=== PATIENT | male | born 1940 | race Caucasian/White ===

== ENCOUNTER 2023-01-27 16:31 | Inpatient (IN) | payer MEDICARE, OTHER ==
[~2023-01-27 16:31] MED LIST: Sodium Chloride 0.9% 500 ML IV STA
[2023-01-27 16:54] LABS: CHLORIDE,CL 96 mEq/L (98-106); SODIUM,NA 136 mEq/L (136-145)
[2023-01-27 16:58] LABS: ESTIMATED GFR 50 mL/min (>=60)
[2023-01-27 19:24] LABS: AMPHETAMINES,URINE NEGATIVE (NEGATIVE); BARBITURATES,URINE NEGATIVE (NEGATIVE); BENZODIAZEPINE,URINE NEGATIVE (NEGATIVE); MDMA (ECSTASY), URINE NEGATIVE (NEGATIVE); METHADONE,URINE NEGATIVE (NEGATIVE); METHAMPHETAMINES,URINE NEGATIVE (NEGATIVE); OPIATES,URINE NEGATIVE (NEGATIVE); OXYCODONE,URINE NEGATIVE (NEGATIVE); PHENCYCLIDINE,URINE NEGATIVE (NEGATIVE); TCA,URINE NEGATIVE (NEGATIVE)
[2023-01-27] MEDS ORDERED: Docusate Sodium 100 MG Cap PO PRN (20:08)
[2023-01-27] MEDS ORDERED: Polyethylene Glycol 3350 Powder 17 GM Packet PO PRN (20:08)
[2023-01-27] MEDS ORDERED: Potassium Chloride 10 MEQ Tab.ER PO STA (20:08)
[2023-01-27] MEDS ORDERED: Ondansetron 4 MG/2 ML SDV IV PRN (20:08)
[2023-01-27] MEDS ORDERED: Sodium Chloride 0.9% 1,000 ML IV STA (20:08)
[2023-01-27] MEDS ORDERED: Temazepam 15 MG Cap PO PRN (20:08)
[2023-01-27] MEDS ORDERED: Ondansetron 4 MG Tab.DIS PO PRN (20:08)
[2023-01-27] MEDS ORDERED: Acetaminophen 325 MG Tab PO PRN (20:08)
[2023-01-27] MEDS: Metoprolol Tartrate 50 MG Tab PO SCH (21:14)
[2023-01-27] MEDS: levETIRAcetam 500 MG Tab PO SCH (21:15)
[2023-01-28] MEDS: Lisinopril 20 MG Tab PO SCH (08:29)
[2023-01-28] MEDS: Potassium Chloride 10 MEQ Tab.ER PO SCH ×2 (08:30→16:43)
[2023-01-28] MEDS: Metoprolol Tartrate 50 MG Tab PO SCH (08:30)
[2023-01-28] MEDS: amLODIPine 2.5 MG Tab PO SCH (08:31)
[2023-01-28] MEDS: levETIRAcetam 500 MG Tab PO SCH ×2 (08:32→19:22)
[2023-01-28] MEDS: Enoxaparin 40 MG/0.4 ML Syringe SUBCUT SCH (14:22)
[2023-01-28] MEDS: Amiodarone 200 MG Tab PO SCH (16:43)
[2023-01-28] MEDS: Metoprolol Tartrate 25 MG Tab PO SCH (19:22)
[2023-01-29] MEDS: Metoprolol Tartrate 25 MG Tab PO SCH ×2 (08:28→19:50)
[2023-01-29] MEDS: levETIRAcetam 500 MG Tab PO SCH ×2 (08:29→19:50)
[2023-01-29] MEDS: Amiodarone 200 MG Tab PO SCH (08:29)
[2023-01-29] MEDS: Lisinopril 20 MG Tab PO SCH (08:29)
[2023-01-29] MEDS: Potassium Chloride 10 MEQ Tab.ER PO SCH ×2 (08:29→18:15)
[2023-01-29] MEDS: amLODIPine 2.5 MG Tab PO SCH (08:30)
[2023-01-29] MEDS: Enoxaparin 40 MG/0.4 ML Syringe SUBCUT SCH (11:30)
[2023-01-30] MEDS: levETIRAcetam 500 MG Tab PO SCH ×2 (07:34→19:17)
[2023-01-30] MEDS: Metoprolol Tartrate 25 MG Tab PO SCH ×2 (07:34→19:17)
[2023-01-30] MEDS: Potassium Chloride 10 MEQ Tab.ER PO SCH ×2 (07:35→17:41)
[2023-01-30] MEDS: Lisinopril 20 MG Tab PO SCH (07:36)
[2023-01-30] MEDS: Amiodarone 200 MG Tab PO SCH (07:36)
[2023-01-30] MEDS: amLODIPine 2.5 MG Tab PO SCH (07:36)
[2023-01-30] MEDS: Enoxaparin 40 MG/0.4 ML Syringe SUBCUT SCH (11:36)
[2023-01-31] MEDS: Amiodarone 200 MG Tab PO SCH (07:17)
[2023-01-31] MEDS: Lisinopril 20 MG Tab PO SCH (07:17)
[2023-01-31] MEDS: Potassium Chloride 10 MEQ Tab.ER PO SCH ×2 (07:17→18:32)
[2023-01-31] MEDS: Metoprolol Tartrate 25 MG Tab PO SCH ×2 (07:18→19:20)
[2023-01-31] MEDS: amLODIPine 2.5 MG Tab PO SCH (07:18)
[2023-01-31] MEDS: levETIRAcetam 500 MG Tab PO SCH ×2 (07:18→19:20)
[2023-01-31] MEDS: Enoxaparin 40 MG/0.4 ML Syringe SUBCUT SCH (11:44)
[2023-02-01] MEDS: Amiodarone 200 MG Tab PO SCH (08:15)
[2023-02-01] MEDS: Lisinopril 20 MG Tab PO SCH (08:15)
[2023-02-01] MEDS: Potassium Chloride 10 MEQ Tab.ER PO SCH (08:15)
[2023-02-01] MEDS: Metoprolol Tartrate 25 MG Tab PO SCH (08:15)
[2023-02-01] MEDS: levETIRAcetam 500 MG Tab PO SCH (08:15)
[2023-02-01 08:16] VITALS: BP 148/67; PULSE 58
[2023-02-01] MEDS: amLODIPine 2.5 MG Tab PO SCH (08:16)
== END 2023-02-01 10:20 | DRG 641 ==
LOC: CC.ED 16:31 → UNDOADMIN 19:40 → CC.MS 19:40
PROVIDERS: ADMIT Nurse Practitioner; ATTEND Nurse Practitioner
DX: E87.6 Hypokalemia (principal); R64 Cachexia; I16.0 Hypertensive urgency; E86.0 Dehydration; Z20.822 Contact with and (suspected) exposure to COVID-19; E78.00 Pure hypercholesterolemia, unspecified; I10 Essential (primary) hypertension; R31.9 Hematuria, unspecified; R56.9 Unspecified convulsions; Z98.49 Cataract extraction status, unspecified eye; Z98.890 Other specified postprocedural states; Z79.899 Other long term (current) drug therapy; Z68.20 Body mass index [BMI] 20.0-20.9, adult
CPT/HCPCS: 36415; 70450; 71045; 80048; 80053; 80177; 80305-QW; 80307; 81001; 82550; 83735; 84484; 85025; 93005; 93010; 93306; 97110-GP; 97161-GP; 99223; 99232; 99233; 99238; A9270-GY; J1650; J7030; J7040; U0002

== ENCOUNTER 2023-04-19 18:26 | Emergency (ER) | payer MEDICARE, OTHER ==
[2023-04-19 18:31] VITALS: BP 156/61; PULSE 77
[2023-04-19 18:58] LABS: BASOPHILS ABSOLUTE AUTO 0.02 10^3/uL (0.00-0.50); BASOPHILS PERCENT AUTO 0.4 % (0-1); EOSINOPHILS ABSOLUTE AUTO 0.11 10^3/uL (0.00-1.50); HEMATOCRIT 34.7 % (42.0-52.0); HEMOGLOBIN 10.9 g/dL (14.0-18.0); MEAN CORPUSCULAR HEMOGLOBIN 34.2 pg (27.0-32.0); MEAN CORPUSCULAR HGB CONC 31.4 g/dL (32.0-36.0); MEAN CORPUSCULAR VOLUME 108.8 fL (83.0-97.0); MONOCYTES ABSOLUTE AUTO 0.88 10^3/uL (0.00-1.50); NEUTROPHILS ABSOLUTE AUTO 3.39 x10^3/uL (1.80-8.00); NEUTROPHILS PERCENT AUTO 61.6 % (41-71); PLATELET COUNT,PLT 283 10^3/uL (150-400); RED BLOOD CELL COUNT 3.19 x10^6/uL (4.50-6.00); WHITE BLOOD CELL COUNT,WBC 5.5 10^3/uL (4.0-11.0)
[2023-04-19 19:07] LABS: ALBUMIN 3.6 g/dL (3.4-5.0); BILIRUBIN TOTAL 0.3 mg/dL (0.0-1.0); CREATININE 1.7 mg/dL (0.7-1.3); EST CRCL DRUG DOSING (CG) 31.9 mL/min; MAGNESIUM 1.9 mg/dL (1.8-2.4); POTASSIUM,K 5.2 mEq/L (3.5-5.0); PROTEIN TOTAL,TP 7.6 g/dL (6.4-8.2)
[2023-04-19 19:45] LABS: APPEARANCE,URINE CLEAR (CLEAR); BILIRUBIN,URINE NEGATIVE (NEGATIVE); COLOR,URINE YELLOW (YELLOW); GLUCOSE,URINE NEGATIVE (NEGATIVE); KETONES,URINE NEGATIVE (NEGATIVE); LEUKOCYTE ESTERASE,URINE TRACE (NEGATIVE); NITRITE,URINE NEGATIVE (NEGATIVE); OCCULT BLOOD,URINE NEGATIVE (NEGATIVE); PH,URINE 5.5 (4.5-8.0); PROTEIN,URINE TRACE mg/dL (NEGATIVE); UROBILINOGEN,URINE 0.2 EU/dL (0.2-1.0)
[2023-04-19 19:46] LABS: BACTERIA,URINE OCCASIONAL /HPF (NOT SEEN); RBC,URINE 0-5 /HPF (0-5); SQUAMOUS EPITHELIAL CELLS,UR NOT SEEN /HPF (NOT SEEN)
[2023-04-19 19:48] LABS: AMPHETAMINES,URINE NEGATIVE (NEGATIVE); BARBITURATES,URINE NEGATIVE (NEGATIVE); BENZODIAZEPINE,URINE NEGATIVE (NEGATIVE); MDMA (ECSTASY), URINE NEGATIVE (NEGATIVE); METHADONE,URINE NEGATIVE (NEGATIVE); METHAMPHETAMINES,URINE NEGATIVE (NEGATIVE); OPIATES,URINE NEGATIVE (NEGATIVE); OXYCODONE,URINE NEGATIVE (NEGATIVE); PHENCYCLIDINE,URINE NEGATIVE (NEGATIVE); TCA,URINE NEGATIVE (NEGATIVE)
[2023-04-19] MEDS: diphenhydrAMINE 50 MG/ML SDV IM ONE (20:57)
[2023-04-19] MEDS: Haloperidol Lactate 5 MG/ML SDV IM ONE (20:57)
== END 2023-04-19 20:20 ==
LOC: CC.ED 18:26
DX: R45.851 Suicidal ideations (principal); R45.850 Homicidal ideations; R46.89 Other symptoms and signs involving appearance and behavior; I10 Essential (primary) hypertension; Z79.899 Other long term (current) drug therapy; Z87.891 Personal history of nicotine dependence
CPT/HCPCS: 36415; 80053; 80305-QW; 81001; 83735; 85025; 87086; 99284; 99285

== ENCOUNTER 2024-01-14 14:30 | Inpatient (IN) | payer MEDICARE, OTHER ==
[2024-01-14] MEDS ORDERED: Sodium Chloride 0.9% 10 ML Syringe FLUSH PRN (14:35)
[2024-01-14 15:02] LABS: BASOPHILS ABSOLUTE AUTO 0.01 10^3/uL (0.00-0.50); BASOPHILS PERCENT AUTO 0.1 % (0-1); EOSINOPHILS ABSOLUTE AUTO 0.13 10^3/uL (0.00-1.50); EOSINOPHILS PERCENT AUTO 1.1 % (0-6); HEMATOCRIT 22.9 % (42.0-52.0); IMMATURE GRAN ABSOLUTE AUTO 0.06 10^3/uL (0.00-0.49); IMMATURE GRAN PERCENT AUTO 0.5 % (0.0-4.9); LYMPHOCYTES PERCENT AUTO 6.7 % (24-44); MEAN CORPUSCULAR HEMOGLOBIN 32.4 pg (27.0-32.0); MEAN CORPUSCULAR VOLUME 104.6 fL (83.0-97.0); MONOCYTES ABSOLUTE AUTO 0.73 10^3/uL (0.00-1.50); MONOCYTES PERCENT AUTO 6.1 % (0-10); NEUTROPHILS ABSOLUTE AUTO 10.25 x10^3/uL (1.80-8.00); NEUTROPHILS PERCENT AUTO 85.5 % (41-71); PLATELET COUNT,PLT 378 10^3/uL (150-400); RED BLOOD CELL COUNT 2.19 x10^6/uL (4.50-6.00)
[2024-01-14 15:06] LABS: HEMOGLOBIN 7.1 g/dL (14.0-18.0)
[2024-01-14 15:20] LABS: ALBUMIN 1.6 g/dL (3.4-5.0); BILIRUBIN TOTAL 0.5 mg/dL (0.0-1.0); C-REACTIVE PROTEIN 18.68 mg/dL (<=0.50); CALCIUM 8.4 mg/dL (8.4-10.1); CREATININE 1.7 mg/dL (0.7-1.3); EST CRCL DRUG DOSING (CG) 31.13 mL/min; MAGNESIUM 2.3 mg/dL (1.8-2.4); POTASSIUM,K 3.6 mEq/L (3.5-5.0); PROTEIN TOTAL,TP 6.8 g/dL (6.4-8.2)
[2024-01-14 15:25] LABS: LACTIC ACID 2.9 mmol/L (0.4-2.0)
[2024-01-14 15:36] LABS: CORONAVIRUS COVID-19 NAA NEGATIVE (NEGATIVE); INFLUENZA A NAA NEGATIVE (NEGATIVE); INFLUENZA B NAA NEGATIVE (NEGATIVE); RESPIRATORY SYNCYTIAL VIR NAA NEGATIVE (NEGATIVE)
[2024-01-14] MEDS: Ampicillin/Sulbactam 3 GM Vial IVPUSH ONE (16:13)
[2024-01-14] MEDS: Sodium Chloride 0.9% 1,000 ML IV SCH (16:20)
[2024-01-14] MEDS ORDERED: Bisacodyl 5 MG Tab PO PRN (16:52)
[2024-01-14] MEDS: Mirtazapine 15 MG Tab PO SCH (19:21)
[2024-01-14] MEDS: Metoprolol Tartrate 25 MG Tab PO SCH (19:21)
[2024-01-14] MEDS: Albuterol/Ipratropium 3.0-0.5 MG/3 ML Neb Soln NEB SCH (19:21)
[2024-01-14] MEDS: levETIRAcetam 500 MG Tab PO SCH (19:22)
[2024-01-14] MEDS: amLODIPine 2.5 MG Tab PO SCH (19:23)
[2024-01-14] MEDS: risperiDONE 0.25 MG Tab PO SCH (19:23)
[2024-01-14] MEDS: Hypromellose 0.3% Ophth Soln 15 ML Bottle EYEBOTH SCH (19:24)
[2024-01-14] MEDS: Polyethylene Glycol 3350 Powder 17 GM Packet PO SCH (19:24)
[2024-01-14] MEDS: Ampicillin/Sulbactam 3 GM Vial IVPUSH SCH (22:06)
[2024-01-14] MEDS: Acetaminophen 325 MG Tab PO PRN (22:06)
[2024-01-15 07:14] LABS: APPEARANCE,URINE CLEAR (CLEAR); BILIRUBIN,URINE NEGATIVE (NEGATIVE); COLOR,URINE YELLOW (YELLOW); GLUCOSE,URINE NEGATIVE (NEGATIVE); KETONES,URINE NEGATIVE (NEGATIVE); LEUKOCYTE ESTERASE,URINE NEGATIVE (NEGATIVE); NITRITE,URINE NEGATIVE (NEGATIVE); OCCULT BLOOD,URINE NEGATIVE (NEGATIVE); PROTEIN,URINE 30 mg/dL (NEGATIVE); UROBILINOGEN,URINE 0.2 EU/dL (0.2-1.0)
[2024-01-15 07:27] LABS: BACTERIA,URINE NOT SEEN /HPF (NOT SEEN); EPITHELIAL CELLS,URINE NOT SEEN /HPF (NOT SEEN); MUCUS,URINE OCCASIONAL /HPF (NOT SEEN); RBC,URINE NOT SEEN /HPF (0-5); WBC,URINE NOT SEEN /HPF (0-5)
[2024-01-15 07:29] LABS: BASOPHILS ABSOLUTE AUTO 0.03 10^3/uL (0.00-0.50); BASOPHILS PERCENT AUTO 0.2 % (0-1); EOSINOPHILS ABSOLUTE AUTO 0.32 10^3/uL (0.00-1.50); EOSINOPHILS PERCENT AUTO 2.3 % (0-6); HEMATOCRIT 24.8 % (42.0-52.0); HEMOGLOBIN 7.5 g/dL (14.0-18.0); IMMATURE GRAN ABSOLUTE AUTO 0.09 10^3/uL (0.00-0.49); IMMATURE GRAN PERCENT AUTO 0.7 % (0.0-4.9); LYMPHOCYTES ABSOLUTE AUTO 2.69 10^3/uL (0.60-5.00); LYMPHOCYTES PERCENT AUTO 19.6 % (24-44); MEAN CORPUSCULAR HEMOGLOBIN 31.5 pg (27.0-32.0); MEAN CORPUSCULAR HGB CONC 30.2 g/dL (32.0-36.0); MEAN CORPUSCULAR VOLUME 104.2 fL (83.0-97.0); MONOCYTES ABSOLUTE AUTO 1.42 10^3/uL (0.00-1.50); MONOCYTES PERCENT AUTO 10.3 % (0-10); NEUTROPHILS ABSOLUTE AUTO 9.19 x10^3/uL (1.80-8.00); NEUTROPHILS PERCENT AUTO 66.9 % (41-71); PLATELET COUNT,PLT 471 10^3/uL (150-400); RED BLOOD CELL COUNT 2.38 x10^6/uL (4.50-6.00); WHITE BLOOD CELL COUNT,WBC 13.7 10^3/uL (4.0-11.0)
[2024-01-15 07:34] LABS: ALBUMIN 1.6 g/dL (3.4-5.0); BILIRUBIN TOTAL 0.4 mg/dL (0.0-1.0); C-REACTIVE PROTEIN 19.4 mg/dL (<=0.50); CALCIUM 8.5 mg/dL (8.4-10.1); CREATININE 1.5 mg/dL (0.7-1.3); EST CRCL DRUG DOSING (CG) 35.37 mL/min; POTASSIUM,K 3.1 mEq/L (3.5-5.0); PROTEIN TOTAL,TP 6.9 g/dL (6.4-8.2)
[2024-01-15] MEDS: Tiotropium Inhaler 18 MCG Inhalation Powder Cap Kit of 5 INH SCH (07:37)
[2024-01-15] MEDS: Thiamine 100 MG Tab PO SCH (07:38)
[2024-01-15] MEDS: Ascorbic Acid 500 MG Tab PO SCH (07:39)
[2024-01-15] MEDS: Ferrous Sulfate 324 MG Tab.EC PO SCH (07:39)
[2024-01-15] MEDS: Amiodarone 200 MG Tab PO SCH (07:39)
[2024-01-15] MEDS: Vitamin B Complex Cap PO SCH (07:40)
[2024-01-15] MEDS: Magnesium Oxide 400 MG Tab PO SCH (07:40)
[2024-01-15] MEDS: Loratadine 10 MG Tab PO SCH (07:40)
[2024-01-15] MEDS: NS + KCl 20mEq/L 1,000 ML IV SCH (09:24)
[2024-01-15] MEDS: Potassium Chloride Riders 20 MEQ in Premix Bag 1 BAG IV ONE (09:24)
[2024-01-15] MEDS: Furosemide 20 MG/2 ML VIAL IV ONE (09:59)
[2024-01-16 08:50] LABS: BASOPHILS ABSOLUTE AUTO 0.03 10^3/uL (0.00-0.50); BASOPHILS PERCENT AUTO 0.3 % (0-1); EOSINOPHILS ABSOLUTE AUTO 0.14 10^3/uL (0.00-1.50); EOSINOPHILS PERCENT AUTO 1.2 % (0-6); IMMATURE GRAN ABSOLUTE AUTO 0.07 10^3/uL (0.00-0.49); IMMATURE GRAN PERCENT AUTO 0.6 % (0.0-4.9); LYMPHOCYTES PERCENT AUTO 8.8 % (24-44); MEAN CORPUSCULAR HEMOGLOBIN 31.9 pg (27.0-32.0); MEAN CORPUSCULAR HGB CONC 30.5 g/dL (32.0-36.0); MEAN CORPUSCULAR VOLUME 104.8 fL (83.0-97.0); MONOCYTES ABSOLUTE AUTO 0.99 10^3/uL (0.00-1.50); MONOCYTES PERCENT AUTO 8.7 % (0-10); NEUTROPHILS ABSOLUTE AUTO 9.19 x10^3/uL (1.80-8.00); NEUTROPHILS PERCENT AUTO 80.4 % (41-71); PLATELET COUNT,PLT 347 10^3/uL (150-400); RED BLOOD CELL COUNT 1.88 x10^6/uL (4.50-6.00); WHITE BLOOD CELL COUNT,WBC 11.4 10^3/uL (4.0-11.0)
[2024-01-16 08:54] LABS: HEMATOCRIT 19.7 % (42.0-52.0)
[2024-01-16 09:02] LABS: ALBUMIN 1.3 g/dL (3.4-5.0); BILIRUBIN TOTAL 0.3 mg/dL (0.0-1.0); CREATININE 1.6 mg/dL (0.7-1.3); EST CRCL DRUG DOSING (CG) 33.16 mL/min; POTASSIUM,K 3.2 mEq/L (3.5-5.0)
[2024-01-16] MEDS: methylPREDNISolone Sodium Succinate 125 MG/2 ML SDV IVPUSH SCH (12:22)
[2024-01-16] MEDS: Potassium Bicarbonate/Cit Ac 10 MEQ Effervescent Tab PO SCH (12:32)
[2024-01-16] MEDS ORDERED: Potassium Chloride Riders 20 MEQ in Premix Bag 1 BAG IV ONE (12:42)
[2024-01-16] MEDS: Potassium Chloride Riders 20 MEQ in Premix Bag 1 BAG IV SCH (12:54)
[2024-01-16] MEDS: Furosemide 40 MG/4 ML VIAL IV ONE (15:02)
[2024-01-16] MEDS: Furosemide 40 MG/4 ML VIAL ONE (15:03)
[2024-01-16] MEDS: Potassium Chloride Riders 20 MEQ in Premix Bag 1 BAG IV ONE (20:15)
[2024-01-16] MEDS: Potassium Chloride Riders 50 ML ONE (20:17)
[2024-01-17] MEDS: Potassium Bicarbonate/Cit Ac 10 MEQ Effervescent Tab PO ONE (04:29)
[2024-01-17 07:31] LABS: BASOPHILS ABSOLUTE AUTO 0.01 10^3/uL (0.00-0.50); BASOPHILS PERCENT AUTO 0.1 % (0-1); IMMATURE GRAN ABSOLUTE AUTO 0.06 10^3/uL (0.00-0.49); IMMATURE GRAN PERCENT AUTO 0.5 % (0.0-4.9); LYMPHOCYTES ABSOLUTE AUTO 0.56 10^3/uL (0.60-5.00); LYMPHOCYTES PERCENT AUTO 4.9 % (24-44); MEAN CORPUSCULAR HGB CONC 32.1 g/dL (32.0-36.0); MEAN CORPUSCULAR VOLUME 96.6 fL (83.0-97.0); MONOCYTES ABSOLUTE AUTO 0.27 10^3/uL (0.00-1.50); MONOCYTES PERCENT AUTO 2.4 % (0-10); NEUTROPHILS ABSOLUTE AUTO 10.51 x10^3/uL (1.80-8.00); NEUTROPHILS PERCENT AUTO 92.1 % (41-71); PLATELET COUNT,PLT 372 10^3/uL (150-400); WHITE BLOOD CELL COUNT,WBC 11.4 10^3/uL (4.0-11.0)
[2024-01-17 08:07] LABS: ALBUMIN 1.5 g/dL (3.4-5.0); BILIRUBIN TOTAL 0.8 mg/dL (0.0-1.0); C-REACTIVE PROTEIN 19.2 mg/dL (<=0.50); CALCIUM 8.5 mg/dL (8.4-10.1); CREATININE 1.6 mg/dL (0.7-1.3); EST CRCL DRUG DOSING (CG) 33.16 mL/min; POTASSIUM,K 3.7 mEq/L (3.5-5.0); PROTEIN TOTAL,TP 6.9 g/dL (6.4-8.2)
[2024-01-17 09:42] LABS: FOLIC ACID 25.5 NG/ML (>8.6)
[2024-01-17] MEDS: Furosemide 40 MG/4 ML VIAL IVPUSH ONE (10:29)
[2024-01-17] MEDS: Levofloxacin/Dextrose 5%-Water 750 MG in Premix Bag 1 BAG IV SCH (12:32)
[2024-01-17] MEDS: Furosemide 40 MG/4 ML VIAL IVPUSH SCH (16:43)
[2024-01-17] MEDS ORDERED: Polyethylene Glycol 3350 Powder 17 GM Packet PO PRN (19:50)
[2024-01-18 07:32] VITALS: BP 139/51; PULSE 80
[2024-01-18 07:37] LABS: BASOPHILS ABSOLUTE AUTO 0.01 10^3/uL (0.00-0.50); BASOPHILS PERCENT AUTO 0.1 % (0-1); HEMATOCRIT 26.1 % (42.0-52.0); HEMOGLOBIN 8.3 g/dL (14.0-18.0); IMMATURE GRAN ABSOLUTE AUTO 0.05 10^3/uL (0.00-0.49); IMMATURE GRAN PERCENT AUTO 0.4 % (0.0-4.9); LYMPHOCYTES ABSOLUTE AUTO 0.67 10^3/uL (0.60-5.00); LYMPHOCYTES PERCENT AUTO 5.1 % (24-44); MEAN CORPUSCULAR HGB CONC 31.8 g/dL (32.0-36.0); MEAN CORPUSCULAR VOLUME 97.4 fL (83.0-97.0); MONOCYTES ABSOLUTE AUTO 0.49 10^3/uL (0.00-1.50); MONOCYTES PERCENT AUTO 3.7 % (0-10); NEUTROPHILS ABSOLUTE AUTO 11.98 x10^3/uL (1.80-8.00); NEUTROPHILS PERCENT AUTO 90.7 % (41-71); PLATELET COUNT,PLT 346 10^3/uL (150-400); RED BLOOD CELL COUNT 2.68 x10^6/uL (4.50-6.00); WHITE BLOOD CELL COUNT,WBC 13.2 10^3/uL (4.0-11.0)
[2024-01-18 07:50] LABS: CALCIUM 8.2 mg/dL (8.4-10.1); CREATININE 1.8 mg/dL (0.7-1.3); EST CRCL DRUG DOSING (CG) 29.48 mL/min; MAGNESIUM 2.2 mg/dL (1.8-2.4)
[2024-01-18] MEDS ORDERED: Furosemide 40 MG/4 ML VIAL IVPUSH SCH (08:00)
[2024-01-18] MEDS: Potassium Chloride 20 MEQ Tab.ER PO ONE (10:56)
== END 2024-01-18 11:00 | disposition home or self-care (01) | DRG 193 ==
LOC: CC.ED 14:30 → CC.MS 15:30 → UNDOADMIN 15:30 → CC.MS 15:44
PROVIDERS: ADMIT Nurse Practitioner; ATTEND Nurse Practitioner
PROC: 30233N1 Transfusion of Nonautologous Red Blood Cells into Peripheral Vein, Percutaneous Approach (ICD-10-PCS; principal; 2024-01-16)
DX: J18.9 Pneumonia, unspecified organism (principal); J96.91 Respiratory failure, unspecified with hypoxia; J90 Pleural effusion, not elsewhere classified; Z66 Do not resuscitate; Z51.5 Encounter for palliative care; E87.6 Hypokalemia; I10 Essential (primary) hypertension; I48.91 Unspecified atrial fibrillation; E78.00 Pure hypercholesterolemia, unspecified; G30.9 Alzheimer's disease, unspecified; F02.80 Dementia in other diseases classified elsewhere, unspecified severity, without behavioral disturbance, psychotic disturbance, mood disturbance, and anxiety; D53.9 Nutritional anemia, unspecified; Z99.89 Dependence on other enabling machines and devices; Z88.5 Allergy status to narcotic agent; Z79.899 Other long term (current) drug therapy; Z98.49 Cataract extraction status, unspecified eye; Z90.49 Acquired absence of other specified parts of digestive tract
CPT/HCPCS: 0241U; 36415; 36430; 71045; 71046; 71250; 80048; 80053; 81001; 82607; 82746; 83605; 83735; 83880; 84484; 85025; 86140; 86850; 86900; 86901; 86920; 86922; 87040; 87493; 93005; 93010; 94640; 99223; 99232; 99233; 99239; 99285; A9270-GY; J0295; J1940; J1956; J2930; J3480; J7030; J7620-GY; P9016

== ENCOUNTER 2024-02-09 03:26 | Emergency (ER) | payer MEDICARE, OTHER ==
[2024-02-09 03:29] VITALS: BP 161/66; PULSE 81
[2024-02-09] MEDS: Diphtheria,Pertussis(Acell),Tetanus Vaccine 0.5 ML Syringe IM ONE (04:01)
[2024-02-09] MEDS: Bacitracin/Neomycin/Polymyxin B Oint 0.9 GM U/D Packet TOP ONE (04:04)
== END 2024-02-09 06:25 | disposition home or self-care (01) ==
LOC: CC.ED 03:26
DX: S01.81XA Laceration without foreign body of other part of head, initial encounter (principal); S01.01XA Laceration without foreign body of scalp, initial encounter; S51.012A Laceration without foreign body of left elbow, initial encounter; I10 Essential (primary) hypertension; Z88.5 Allergy status to narcotic agent; Z90.49 Acquired absence of other specified parts of digestive tract; Z79.899 Other long term (current) drug therapy; Z23 Encounter for immunization; W26.8XXA Contact with other sharp object(s), not elsewhere classified, initial encounter
CPT/HCPCS: 12001; 90471; 90715; 99283; 99283-25; A9270-GY

== ENCOUNTER 2024-05-05 23:45 | Inpatient (IN) | payer MEDICARE, OTHER ==
[2024-05-06 00:14] LABS: BASOPHILS ABSOLUTE AUTO 0.02 10^3/uL (0.00-0.50); BASOPHILS PERCENT AUTO 0.1 % (0-1); EOSINOPHILS ABSOLUTE AUTO 0.03 10^3/uL (0.00-1.50); EOSINOPHILS PERCENT AUTO 0.2 % (0-6); HEMATOCRIT 22.2 % (42.0-52.0); IMMATURE GRAN ABSOLUTE AUTO 0.07 10^3/uL (0.00-0.49); IMMATURE GRAN PERCENT AUTO 0.5 % (0.0-4.9); LYMPHOCYTES ABSOLUTE AUTO 0.94 10^3/uL (0.60-5.00); LYMPHOCYTES PERCENT AUTO 6.3 % (24-44); MEAN CORPUSCULAR HEMOGLOBIN 30.8 pg (27.0-32.0); MEAN CORPUSCULAR HGB CONC 31.1 g/dL (32.0-36.0); MEAN CORPUSCULAR VOLUME 99.1 fL (83.0-97.0); MONOCYTES ABSOLUTE AUTO 1.43 10^3/uL (0.00-1.50); MONOCYTES PERCENT AUTO 9.6 % (0-10); NEUTROPHILS ABSOLUTE AUTO 12.48 x10^3/uL (1.80-8.00); NEUTROPHILS PERCENT AUTO 83.3 % (41-71); PLATELET COUNT,PLT 252 10^3/uL (150-400); RED BLOOD CELL COUNT 2.24 x10^6/uL (4.50-6.00)
[2024-05-06 00:21] LABS: HEMOGLOBIN 6.9 g/dL (14.0-18.0)
[2024-05-06 00:24] LABS: APPEARANCE,URINE CLEAR (CLEAR); BILIRUBIN,URINE NEGATIVE (NEGATIVE); COLOR,URINE YELLOW (YELLOW); GLUCOSE,URINE NEGATIVE (NEGATIVE); KETONES,URINE NEGATIVE (NEGATIVE); LEUKOCYTE ESTERASE,URINE NEGATIVE (NEGATIVE); NITRITE,URINE NEGATIVE (NEGATIVE); OCCULT BLOOD,URINE NEGATIVE (NEGATIVE); PH,URINE 5.5 (4.5-8.0); PROTEIN,URINE 30 mg/dL (NEGATIVE); UROBILINOGEN,URINE 0.2 EU/dL (0.2-1.0)
[2024-05-06 00:26] LABS: ALANINE AMINOTRANSFERASE,ALT 17 U/L (12-78); ALBUMIN 1.9 g/dL (3.4-5.0); ALKALINE PHOSPHATASE 85 U/L (46-116); ASPARTATE AMNIOTRANSFERASE,AST 13 U/L (15-37); BILIRUBIN TOTAL 0.4 mg/dL (0.0-1.0); BLOOD UREA NITROGEN,BUN 36 mg/dL (7-18); C-REACTIVE PROTEIN 5.29 mg/dL (<=0.50); CALCIUM 8.7 mg/dL (8.4-10.1); CARBON DIOXIDE,CO2 23 mmol/L (21-32); CHLORIDE,CL 109 mEq/L (98-106); CREATININE 1.8 mg/dL (0.7-1.3); GLUCOSE RANDOM 137 mg/dL (75-99); POTASSIUM,K 4.4 mEq/L (3.5-5.0); SODIUM,NA 142 mEq/L (136-145)
[2024-05-06 00:27] LABS: ESTIMATED GFR 37 mL/min (>=60)
[2024-05-06 00:46] LABS: BACTERIA,URINE FEW /HPF (NOT SEEN); RBC,URINE 0-5 /HPF (0-5); WBC,URINE 0-5 /HPF (0-5)
[2024-05-06] MEDS ORDERED: Ondansetron 4 MG Tab.DIS PO PRN (01:21)
[2024-05-06] MEDS ORDERED: Bisacodyl 5 MG Tab PO PRN (01:21)
[2024-05-06] MEDS ORDERED: Ondansetron 4 MG/2 ML SDV IV PRN (01:21)
[2024-05-06] MEDS ORDERED: Sodium Chloride 0.9% 10 ML Syringe FLUSH PRN (01:21)
[2024-05-06] MEDS ORDERED: Acetaminophen 325 MG Tab PO PRN ×2 (01:21)
[2024-05-06] MEDS: Sodium Chloride 0.9% 1,000 ML IV SCH (01:37)
[2024-05-06] MEDS: cefTRIAXone 2 GM Vial IVPUSH SCH (01:56)
[2024-05-06] MEDS: Azithromycin 500 MG in Sodium Chloride 0.9% 250 ML IV SCH (02:15)
[2024-05-06 07:53] LABS: BASOPHILS ABSOLUTE AUTO 0.03 10^3/uL (0.00-0.50); BASOPHILS PERCENT AUTO 0.2 % (0-1); EOSINOPHILS ABSOLUTE AUTO 0.19 10^3/uL (0.00-1.50); EOSINOPHILS PERCENT AUTO 1.3 % (0-6); HEMATOCRIT 25.2 % (42.0-52.0); HEMOGLOBIN 7.6 g/dL (14.0-18.0); IMMATURE GRAN ABSOLUTE AUTO 0.03 10^3/uL (0.00-0.49); IMMATURE GRAN PERCENT AUTO 0.2 % (0.0-4.9); LYMPHOCYTES ABSOLUTE AUTO 2.33 10^3/uL (0.60-5.00); LYMPHOCYTES PERCENT AUTO 15.8 % (24-44); MEAN CORPUSCULAR HEMOGLOBIN 30.5 pg (27.0-32.0); MEAN CORPUSCULAR HGB CONC 30.2 g/dL (32.0-36.0); MEAN CORPUSCULAR VOLUME 101.2 fL (83.0-97.0); MONOCYTES ABSOLUTE AUTO 1.52 10^3/uL (0.00-1.50); MONOCYTES PERCENT AUTO 10.3 % (0-10); NEUTROPHILS ABSOLUTE AUTO 10.69 x10^3/uL (1.80-8.00); NEUTROPHILS PERCENT AUTO 72.2 % (41-71); PLATELET COUNT,PLT 237 10^3/uL (150-400); RED BLOOD CELL COUNT 2.49 x10^6/uL (4.50-6.00); WHITE BLOOD CELL COUNT,WBC 14.8 10^3/uL (4.0-11.0)
[2024-05-06 08:01] LABS: BILIRUBIN TOTAL 0.4 mg/dL (0.0-1.0); CALCIUM 8.7 mg/dL (8.4-10.1); CREATININE 1.6 mg/dL (0.7-1.3); EST CRCL DRUG DOSING (CG) 27.21 mL/min; POTASSIUM,K 4.3 mEq/L (3.5-5.0); PROTEIN TOTAL,TP 7.5 g/dL (6.4-8.2)
[2024-05-06 08:10] LABS: ALBUMIN 1.9 g/dL (3.4-5.0); C-REACTIVE PROTEIN 8.22 mg/dL (<=0.50)
[2024-05-06] MEDS: Potassium Chloride 20 MEQ Tab.ER PO SCH (08:22)
[2024-05-06] MEDS: Thiamine 100 MG Tab PO SCH (08:22)
[2024-05-06] MEDS: Ferrous Sulfate 324 MG Tab.EC PO SCH (08:23)
[2024-05-06] MEDS: levETIRAcetam 500 MG Tab PO SCH (08:23)
[2024-05-06] MEDS: Metoprolol Tartrate 25 MG Tab PO SCH (08:23)
[2024-05-06] MEDS: Vitamin B Complex Cap PO SCH (08:23)
[2024-05-06] MEDS: Loratadine 10 MG Tab PO SCH (08:23)
[2024-05-06] MEDS: Amiodarone 200 MG Tab PO SCH (08:23)
[2024-05-06] MEDS: Magnesium Oxide 400 MG Tab PO SCH (08:23)
[2024-05-06] MEDS: Hypromellose 0.3% Ophth Soln 15 ML Bottle EYEBOTH SCH (08:31)
[2024-05-06] MEDS: methylPREDNISolone Sodium Succinate 40 MG/1 ML SDV IVPUSH SCH (08:31)
[2024-05-06] MEDS: Polyethylene Glycol 3350 Powder 17 GM Packet PO SCH (08:48)
[2024-05-06] MEDS: Tiotropium Inhaler 18 MCG Inhalation Powder Cap Kit of 5 INH SCH (08:49)
[2024-05-06] MEDS: risperiDONE 0.25 MG Tab PO SCH (19:40)
[2024-05-06] MEDS: Mirtazapine 15 MG Tab PO SCH (19:46)
[2024-05-06] MEDS: amLODIPine 2.5 MG Tab PO SCH (19:47)
[2024-05-06] MEDS: Piperacillin/Tazobactam 4.5 GM in Sodium Chloride 0.9% 100 ML IV ONE (19:59)
[2024-05-07] MEDS ORDERED: cefTRIAXone 2 GM Vial IVPUSH SCH
[2024-05-07] MEDS ORDERED: Azithromycin 500 MG in Sodium Chloride 0.9% 250 ML IV SCH
[2024-05-07] MEDS: Piperacillin/Tazobactam 4.5 GM in Sodium Chloride 0.9% 100 ML IV SCH (00:21)
[2024-05-07 07:32] LABS: BASOPHILS ABSOLUTE AUTO 0.01 10^3/uL (0.00-0.50); BASOPHILS PERCENT AUTO 0.1 % (0-1); HEMATOCRIT 25.7 % (42.0-52.0); HEMOGLOBIN 7.9 g/dL (14.0-18.0); IMMATURE GRAN ABSOLUTE AUTO 0.02 10^3/uL (0.00-0.49); IMMATURE GRAN PERCENT AUTO 0.2 % (0.0-4.9); LYMPHOCYTES ABSOLUTE AUTO 1.03 10^3/uL (0.60-5.00); LYMPHOCYTES PERCENT AUTO 11.2 % (24-44); MEAN CORPUSCULAR HEMOGLOBIN 30.7 pg (27.0-32.0); MEAN CORPUSCULAR HGB CONC 30.7 g/dL (32.0-36.0); MONOCYTES ABSOLUTE AUTO 0.89 10^3/uL (0.00-1.50); MONOCYTES PERCENT AUTO 9.7 % (0-10); NEUTROPHILS ABSOLUTE AUTO 7.23 x10^3/uL (1.80-8.00); NEUTROPHILS PERCENT AUTO 78.8 % (41-71); PLATELET COUNT,PLT 234 10^3/uL (150-400); RED BLOOD CELL COUNT 2.57 x10^6/uL (4.50-6.00); WHITE BLOOD CELL COUNT,WBC 9.2 10^3/uL (4.0-11.0)
[2024-05-07 07:50] LABS: ALBUMIN 1.8 g/dL (3.4-5.0); BILIRUBIN TOTAL 0.3 mg/dL (0.0-1.0); C-REACTIVE PROTEIN 8.35 mg/dL (<=0.50); CALCIUM 8.9 mg/dL (8.4-10.1); CREATININE 1.5 mg/dL (0.7-1.3); EST CRCL DRUG DOSING (CG) 29.02 mL/min; POTASSIUM,K 4.8 mEq/L (3.5-5.0); PROTEIN TOTAL,TP 7.1 g/dL (6.4-8.2)
[2024-05-08 07:25] LABS: BASOPHILS ABSOLUTE AUTO 0.01 10^3/uL (0.00-0.50); BASOPHILS PERCENT AUTO 0.1 % (0-1); EOSINOPHILS ABSOLUTE AUTO 0.01 10^3/uL (0.00-1.50); EOSINOPHILS PERCENT AUTO 0.1 % (0-6); HEMATOCRIT 24.4 % (42.0-52.0); HEMOGLOBIN 7.5 g/dL (14.0-18.0); IMMATURE GRAN ABSOLUTE AUTO 0.02 10^3/uL (0.00-0.49); IMMATURE GRAN PERCENT AUTO 0.2 % (0.0-4.9); LYMPHOCYTES ABSOLUTE AUTO 1.18 10^3/uL (0.60-5.00); MEAN CORPUSCULAR HEMOGLOBIN 30.7 pg (27.0-32.0); MEAN CORPUSCULAR HGB CONC 30.7 g/dL (32.0-36.0); MONOCYTES ABSOLUTE AUTO 0.76 10^3/uL (0.00-1.50); NEUTROPHILS ABSOLUTE AUTO 6.42 x10^3/uL (1.80-8.00); NEUTROPHILS PERCENT AUTO 76.6 % (41-71); PLATELET COUNT,PLT 232 10^3/uL (150-400); RED BLOOD CELL COUNT 2.44 x10^6/uL (4.50-6.00); WHITE BLOOD CELL COUNT,WBC 8.4 10^3/uL (4.0-11.0)
[2024-05-08 08:53] LABS: ALBUMIN 1.9 g/dL (3.4-5.0); BILIRUBIN TOTAL 0.4 mg/dL (0.0-1.0); C-REACTIVE PROTEIN 4.1 mg/dL (<=0.50); CREATININE 1.6 mg/dL (0.7-1.3); EST CRCL DRUG DOSING (CG) 27.21 mL/min; POTASSIUM,K 4.5 mEq/L (3.5-5.0); PROTEIN TOTAL,TP 6.9 g/dL (6.4-8.2)
[2024-05-08 11:45] VITALS: BP 131/51; PULSE 64
== END 2024-05-08 13:10 | disposition home or self-care (01) | DRG 195 ==
LOC: CC.ED 23:45 → CC.MS 05-06 00:46 → UNDOADMIN 05-06 01:08 → CC.MS 05-06 01:08
PROVIDERS: ADMIT Physician Assistant Medical; ATTEND Nurse Practitioner Family
DX: J18.9 Pneumonia, unspecified organism (principal); I48.91 Unspecified atrial fibrillation; E78.00 Pure hypercholesterolemia, unspecified; Z88.8 Allergy status to other drugs, medicaments and biological substances; I10 Essential (primary) hypertension; G30.9 Alzheimer's disease, unspecified; F02.80 Dementia in other diseases classified elsewhere, unspecified severity, without behavioral disturbance, psychotic disturbance, mood disturbance, and anxiety; Z66 Do not resuscitate; D64.9 Anemia, unspecified; Z88.5 Allergy status to narcotic agent; Z79.899 Other long term (current) drug therapy; Z87.81 Personal history of (healed) traumatic fracture; Z98.49 Cataract extraction status, unspecified eye; Z90.49 Acquired absence of other specified parts of digestive tract; Z98.890 Other specified postprocedural states; Z87.891 Personal history of nicotine dependence
CPT/HCPCS: 36415; 71045; 80053; 81001; 83605; 85025; 86140; 86850; 86870; 86900; 86901; 87040; 99285; A9270-GY; J0456; J0696; J2543; J2919; J3490; J7030; J7050

== ENCOUNTER 2024-09-01 21:27 | Emergency (ER) | payer MEDICARE, OTHER ==
[2024-09-01 22:21] LABS: BASOPHILS ABSOLUTE AUTO 0.03 10^3/uL (0.00-0.50); BASOPHILS PERCENT AUTO 0.3 % (0-1); EOSINOPHILS ABSOLUTE AUTO 0.24 10^3/uL (0.00-1.50); EOSINOPHILS PERCENT AUTO 2.5 % (0-6); HEMATOCRIT 24.2 % (42.0-52.0); IMMATURE GRAN ABSOLUTE AUTO 0.02 10^3/uL (0.00-0.49); IMMATURE GRAN PERCENT AUTO 0.2 % (0.0-4.9); LYMPHOCYTES ABSOLUTE AUTO 1.74 10^3/uL (0.60-5.00); LYMPHOCYTES PERCENT AUTO 18.1 % (24-44); MEAN CORPUSCULAR HEMOGLOBIN 33.2 pg (27.0-32.0); MEAN CORPUSCULAR HGB CONC 28.9 g/dL (32.0-36.0); MEAN CORPUSCULAR VOLUME 114.7 fL (83.0-97.0); MONOCYTES ABSOLUTE AUTO 0.87 10^3/uL (0.00-1.50); MONOCYTES PERCENT AUTO 9.1 % (0-10); NEUTROPHILS PERCENT AUTO 69.8 % (41-71); PLATELET COUNT,PLT 233 10^3/uL (150-400); RED BLOOD CELL COUNT 2.11 x10^6/uL (4.50-6.00); WHITE BLOOD CELL COUNT,WBC 9.6 10^3/uL (4.0-11.0)
[2024-09-01] MEDS: fentaNYL 50 MCG/ML SDV IVPUSH ONE ×2 (22:22→23:50)
[2024-09-01 22:23] LABS: HEMOGLOBIN 7.5 g/dL (14.0-18.0)
[2024-09-01] MEDS: Diphtheria,Pertussis(Acell),Tetanus Vaccine 0.5 ML Syringe IM ONE (22:31)
[2024-09-01 22:34] LABS: ALBUMIN 2.8 g/dL (3.4-5.0); BILIRUBIN TOTAL 0.3 mg/dL (0.0-1.0); CALCIUM 10.4 mg/dL (8.4-10.1); EST CRCL DRUG DOSING (CG) 17.72 mL/min; MAGNESIUM 2.5 mg/dL (1.8-2.4); POTASSIUM,K 4.5 mEq/L (3.5-5.0)
[2024-09-01 22:35] LABS: CREATININE 2.8 mg/dL (0.7-1.3)
[2024-09-01 22:50] LABS: APPEARANCE,URINE CLEAR (CLEAR); BILIRUBIN,URINE NEGATIVE (NEGATIVE); COLOR,URINE YELLOW (YELLOW); GLUCOSE,URINE NEGATIVE (NEGATIVE); KETONES,URINE NEGATIVE (NEGATIVE); LEUKOCYTE ESTERASE,URINE NEGATIVE (NEGATIVE); NITRITE,URINE NEGATIVE (NEGATIVE); OCCULT BLOOD,URINE TRACE-INTACT (NEGATIVE); PH,URINE 5.5 (4.5-8.0); PROTEIN,URINE TRACE mg/dL (NEGATIVE); UROBILINOGEN,URINE 0.2 EU/dL (0.2-1.0)
[2024-09-01 22:51] LABS: BACTERIA,URINE NOT SEEN /HPF (NOT SEEN); EPITHELIAL CELLS,URINE NOT SEEN /HPF (NOT SEEN); MUCUS,URINE FEW /HPF (NOT SEEN); RBC,URINE 0-5 /HPF (0-5); WBC,URINE NOT SEEN /HPF (0-5)
[2024-09-01] MEDS: Sodium Chloride 0.9% 1,000 ML IV SCH (23:26)
[2024-09-02] MEDS: fentaNYL 50 MCG/ML SDV IVPUSH PRN (01:41)
[2024-09-02 08:09] VITALS: BP 157/61; PULSE 85
== END 2024-09-02 08:00 ==
LOC: CC.ED 21:27
DX: S72.145A Nondisplaced intertrochanteric fracture of left femur, initial encounter for closed fracture (principal); N17.9 Acute kidney failure, unspecified; N18.9 Chronic kidney disease, unspecified; D64.9 Anemia, unspecified; I10 Essential (primary) hypertension; E78.00 Pure hypercholesterolemia, unspecified; Z88.8 Allergy status to other drugs, medicaments and biological substances; Z79.899 Other long term (current) drug therapy; Z90.49 Acquired absence of other specified parts of digestive tract; W19.XXXA Unspecified fall, initial encounter
CPT/HCPCS: 36415; 72170; 73070-LT; 80053; 81001; 83735; 85025; 90471; 90715; 93005; 93010; 96361; 96374; 96376; 99284; 99285-25; J3010; J7030